=== PATIENT | male | born 1950 | race Caucasian/White ===

== ENCOUNTER 2017-10-14 09:40 | Emergency (ER) | payer BC, OTHER ==
[~2017-10-14] VITALS: Ht 182.9 cm; Wt 83.9 kg
--- NOTE | ~2017-10-14 | EKG ---
[place] [address] [facility] 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1950 Requested By: Kandy De Anda Order Number: [id number] MD: Christian Mccullough Measurements Intervals [place] Rate: 65 P: 30 [place]: 166 QRS: -17 QRSD: 94 T: 1 QT: 365 QTc: 380 Interpretive Statements Sinus rhythm Borderline left axis deviation No previous ECG available for comparison Electronically Signed On 10-14-2017 15:46:10 CDT by Ismael Undrewood Electronically Signed On 10-15-2017 7:57:28 CDT by Christian Mccullough [email or web address] <ELECTRONICALLY SIGNED> By: Christian Mccullough MD, [facility] 10/15/17 0757 00 100 Christian Mccullough MD, [facility] /EPI
--- NOTE | ~2017-10-14 | EKG ---
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 10/15/17 0757 1226 1226 Christian Mccullough MD, [facility] /EPI
[~2017-10-14 09:40] MED LIST: CARAFATE 11 GM/10 M1 PO; JUICE PLUS; MIRALAX17 GM; NEXIUM40 MG PO
[2017-10-14 10:11] LABS: BASOPHILS 1.2 % (0.0-2.0); EOSINOPHILS 2.9 % (0.0-3.0); HEMATOCRIT 42.5 % (42.0-52.0); HEMOGLOBIN 14.3 gm/dL (14.0-18.0); LYMPHOCYTES 23.4 % (24.0-44.0); MCH 31.1 pg (26.0-34.0); MCHC 33.5 g/dL (28.0-37.0); MCV 92.6 fL (80.0-100.0); MONOCYTES 7.7 % (1.0-8.0); PLATELET COUNT 252 thou/uL (150-400); POLYS 64.8 % (36.0-66.0); RBC 4.59 mil/uL (4.50-6.00); RDW 13.8 % (10.5-14.5); WBC 6.1 thou/uL (4.0-11.0)
[2017-10-14 10:18] LABS: ANION GAP 3 mmol/L (7-16); BUN 14 mg/dL (7-18); CALCIUM 9.1 mg/dL (8.5-10.1); CHLORIDE 105 mmol/L (98-107); CO2 30 mmol/L (21-32); CREATININE 0.7 mg/dL (0.7-1.3); GLUCOSE 106 mg/dL (74-106); POTASSIUM 4.5 mmol/L (3.5-5.1); SODIUM 138 mmol/L (136-145)
[2017-10-14] MEDS ORDERED: PROTONIX40 M1 PO (10:21)
[2017-10-14 10:27] LABS: TROPONIN-I < 0.04 ng/mL (<0.06)
[2017-10-14 13:18] VITALS: BP 154/95
== END 2017-10-14 13:00 | disposition home or self-care (01) ==
LOC: ER 09:40
PROVIDERS: Emergency Medicine
DX: R07.89 Other chest pain (principal)

== ENCOUNTER → 2019-08-25 | Outpatient (CLI) | payer OTHER ==
[~2019-08-25] MED LIST changes: +PROTONIX40 M1 PO
== END ==
LOC: SJCVC 13:34
PROVIDERS: ATTEND Internal Medicine Cardiovascular Disease
DX: I10 Essential (primary) hypertension (principal); E78.5 Hyperlipidemia, unspecified; Z86.11 Personal history of tuberculosis; Z82.49 Family history of ischemic heart disease and other diseases of the circulatory system

== ENCOUNTER → 2019-08-26 | Outpatient (CLI) | payer OTHER | LOC: SJCVCIMAG 09:01 | DX: I08.2 Rheumatic disorders of both aortic and tricuspid valves (principal); I10 Essential (primary) hypertension; E78.5 Hyperlipidemia, unspecified ==

== ENCOUNTER → 2020-09-28 | Outpatient (CLI) | payer OTHER | LOC: SJCVC 13:41 | PROVIDERS: ATTEND Internal Medicine Cardiovascular Disease | DX: R93.1 Abnormal findings on diagnostic imaging of heart and coronary circulation (principal); E78.00 Pure hypercholesterolemia, unspecified; Z86.711 Personal history of pulmonary embolism; Z82.49 Family history of ischemic heart disease and other diseases of the circulatory system; Z79.82 Long term (current) use of aspirin; Z79.899 Other long term (current) drug therapy ==